=== PATIENT | female | born 1980 | race Caucasian/White ===

== ENCOUNTER 2025-09-13 08:29 | Outpatient (AMB) | payer OTHER, SELFPAY ==
--- NOTE | 2025-09-13 08:34 | MHC.AMNUTRGE ---
VS Expanded 09/13/25 08:35 09/13/25 08:38 Height 5 ft 3 in 5 ft 3 in Weight 165 lb 2 oz 165 lb BMI 29.2 29.2 Intake Visit Reasons: Obesity Nutrition Presentation Details: Pt presents for MNT for overweight Food frequency fruits: 1-2/d wk dairy: 2/day vegetables f: 3 times per week Fish 0 to once a week beverages: coffee 3/c no sugar creamer , water, lemonade no sugar added Typically food intake orgain protein powder made with milk, alternatives quest chips, carb control wrap and tuna with oil /vinegar chicken breast or steak tips with broccoli,white rice , yogurt and granola and almonds OBU-Kcdgvte-Yh.Jeor Equation Height: 5 ft 3 in Weight: 165 lb Resting Metabolic Rate: 1360.48 Calculated Activity Level: Sedentary Calories Needed to Maintain Weight: 1632.58 Diagnosis Nutrition problem #1: overweight/obesity As related to (etiology) #1: diagnosis As evidenced by (sign/symptom) #1: high BMI (29.2 on August 2025) Assessment & Plan Assessment & Plan (1) Overweight (BMI 25.0-29.9): Code(s): E66.3 - Overweight Category: Medical Plan: current wt: 75 kg ( 09/19 ) est kcal needs as per MSJ: 1600 est protein needs as per 1 g/kg BW: 70-80 est fluid needs as per 30 ml/kg BW: 2200 Recommended fiber > 12 g /day and gradually increase up to 25-28 g /day or as tolerated Recommend: 2300 mg per day or less or as recommended by your Dr. Nutrition topics discussed : Reviewed (R), Pt verbalized understanding (V) , not applicable (N/A) R, v : Healthy Plate Method Concept: R, V, : Carbohydrates: food sources of carbohydrates, relationship of carbohydrates to blood glucose, fatty liver GI health. Recommended total amount of carbohydrates per meals and snack. Differences between simple carbohydrates and complex carbohydrates R, V,: Lean protein foods including vegan , vegetarian sources of protein. Benefits of protein (including but not limited to healing, nutritional value , benefits in weight loss, glucose control R, V,: Fats : Source of fats, benefits of fats. Difference between saturated and unsaturated fats. Saturated fats and its contribution to inflammation R, V, : Fiber: food sources and role of fiber in the diet (including but not limited to its role as a prebiotic, benefits in constipation, role in IBS , role in glucose control and cholesterol level) R, V, : Hydration: role of hydration and prevention of dehydration or over hydration. Foods and water content. R, V, N/A: Vitamins and Minerals in foods and supplements R, V, : Interpreting food labels, including serving size, macronutrients, vitamins, minerals, allergens, ingredient list , % daily value Patient Instructions: Practice mindful eating Recommend reducing total carbohydrates to 160 g or less per day distributed throughout the day. Choose complex carbohydrates, high-fiber foods . Watch on amount of fat added to the foods including healthy fats Keep hydrated by choosing water, herbal or fruit infused water Coding Level of Care Code Nutr Indiv Intake (21581) Diagnoses Overweight (BMI 25.0-29.9) E66.3 Time Spent (min) 30
[2025-09-13 08:35] VITALS: BMI 29.2
--- OUTSIDE RECORDS SUMMARY | 2025-09-13 16:15 | XMS_ITS | Encounter Summary ---
Author Organization [facility] Address [address] [place] [address] Care Team Providers Care Executive Casino Host Name Role Phone Brando Harris MD Primary Care Provider Brando Castorena MD Primary Care Provider Autumn Knowles MD Primary Care Provider Un available Georgina Hoffman MD Primary Care Provider Unavail able Jayla Smith MD Primary Care Provider [phone] Harrison Cervantes MD Primary Care Provider + Encounter Details Date Type Department Care Team Description 11/30/2017 Pt. Non Urgent Medical Question OBGYN - [place] [address] [place] [id number] Litzy Oakley CNM Social History Tobacco Use Types Packs/Day Years Used Date Smoking Tobacco: Former Cigarettes Smokeless Tobacco: Former Alcohol Use Standard Drinks/Week Comments Yes 0 (1 standard drink = 0.6 oz pur e alcohol) occasionally Physical Activity Answer Date Recorded On average, how many days pe r week do you engage in moderate to strenuous exercise (like walking fast, running, jogging, dancing, swimming, biking, or other activities that cause a light or heavy sweat)? 3 days 10/03/2019 On average, how many minutes do you engage in exercise at this level? 60 min 10/03/2019 Stress Answer Date Recorded Do you feel stress - tense, restless, nervous, or anxious, or unable to sleep at night because your mind is troubled all the time - these days? To some extent 10/03/2019 Sex Assigned at Date Recorded Not on file Job Start Date Occupation Industry Not on file Not on file Not on file documented as of this encounter Progress Notes * Taisha Dumont - 11/30/2017 9:40 AM ESTFrom: Lindsay Gomez To: Litzy Oakley CNM Sent: 11/30/2017 9:05 AM EST Subject: Me again Good morning! I hope you had a great weekend. I have been trying to take your advice and not stressabout my recent tests but some symptoms I've been having are making it a bit difficult. I realize its too soon to know what I have but I am still having vaginal itching, the odor is gone though. I haven't taken the BV medication bc you said I was negative and I don't want to take anything that's not needed. So is there anything I can take for that? Also my eyes have been cloudy and feel like I have something in them. Going on 4 days of this. Today i woke up with crusty, pink eyes. After I showered the redness and goop went away. They remain slighty puffy. I have had headaches every day, so I've been taking 600mg of Motrin. I have had diarrhea almost every time I eat too. What should my nextstep be? Im a bit nervous about my eyes. I will have my phone all day. [phone]. Thanks again, Lindsay documented in this encounter Plan of Treatment Not on file documented as of this encounter Visit Diagnoses Not on filedocumented in this encounter Additional Health Concerns Infection Onset Date Last Indicated Resolved Time COVID-19 06/03/2021 06/08/2021 03/07/2024 9:06 AM EDT documented as of this encounter Care Teams Executive Casino Host Relationship Specialty Start Date End Date Brando Harris MD PCP - General Internal Medicine 03/07/13 03/25/18 Brando Harris MD PCP - General Internal Medicine 03/26/18 03/30/18 Autumn De Luna MD PCP - General Internal Medicine 03/31/1808/25 Georgina Hoffman MD PCP - General Internal Medicine 08/26/19 09/29/21 Jayla Smith MD [address] [place] [id number] PCP - General Internal Medicine 09/30/21 05/03/23 Harrison Cervantes MD [address] [place] [id number] PCP - General Internal Medicine 05/04/23 documented as of this encounter
--- OUTSIDE RECORDS SUMMARY | 2025-09-13 16:15 | XMS_ITS | Clinical Summary ---
Author Organization [facility] Address [address] [place] [address] Care Team Providers Care French Comber Name Role Phone Harrison Cervantes MD Primary Care Provider + Allergies Active Allergy Reactions Severity Noted Date Comments Bupropion Hcl OTHER 11/24/2013 Slur speech Medications Medication Sig Dispensed Refills Start Date End Date Status MAGNESIUM CITRATE OR Take by mouth. 0 Active Probiotic Product (PROBIOTIC OR) Take by mouth. 0 Activ e famotidine (PEPCID) 20 MG tablet Take 1 Tablet by mouth 2 times daily as needed for Heartburn. 60 Tablet 11/05/2023 Active polyethylene glycol (GLYCOLAX) 17 GM/SCOOP powder Take 17 g by mouth daily. 527 g 11/05/2023 Active docusate sodium (Colace) 100 MG capsule Take 1 Capsule by mouth 2 times daily. 60 Capsule 11/05/2023 Active ALBUTEROL SULFATE 108 (90 Base) MCG/ACT Aero SolnIndications:Ex ercise-induced asthma Inhale 2 Puffs into the lungs every 6 hours as needed for Cough, Wheezing or Shortness of Breath. 15 g 0 11/25/2023 Active fluticasone (Flonase) 50 MCG/ACT nasal sprayIndications:C hronic rhinitis 2 sprays into each nostril once daily. 16 g 0 11/25/2023 Active tretinoin (RETIN-A) 0.025 % cream Apply small amounts to face at night as needed for acne 45 g 0 11/25/2023 Active Sennosides (Senna) 8.6 MG Tab Take by mouth. 0 Active ALBUTEROL SULFATE (Ventolin HFA) 108 (90 Base) MCG/ACT Aero SolnIndications:Mo derate persistent asthma without complication,Exerc ise-induced asthma Inhale 2 Puffs into the lungs every 6 hours as needed for Cough, Wheezing or Shortness of Breath for up to 90 days. 3 g 3 12/18/2023 Active lorazepam (ATIVAN) 0.5 MG tablet Take 1 Tablet by mouth daily as needed for Anxiety for up to 28 days. 28 Tablet 0 02/29/2024 Active bisacodyl (DULCOLAX) 5 MG EC tablet Take 2 tablets by mouth right before your first dose of liquid prep. 2 Tablet 0 2024 Active polyethylene glycol (GoLYTELY,NuLYTELY ) 236 g suspension Take 240 mL by mouth once for 1 dose. May substitue for any PEG. Follow instructions given by office. 4000 mL 0 2024 Active Active Problems Problem Noted Date Trace Aortic insufficiency 05/06/2024 Trace to mild Mitral insufficiency 05/06 Trace Pulmonary insufficiency 05/06/2024 Pap smear abnormality of cervix with ASC US favoring benign 03/15/2024 Overview: 02/2024 PAP ASCUS, + HPV ( neg 16, 18/45 Plan: RECOMMENDATION 1-year follow-up HPV-based screening at follow-up visit RISK 5 year risk of CIN3+ is 3.60% Overweight (BMI 25.0-29.9) 11/25/2023 Chronic right-sided low back pain with b ilateral sciatica 11/25/2023 Pre-syncope 02/28/2021 Overview: Was evaluated in the emergency room Exercise-induced asthma 08/09/2020 Chronic constipation 07/14/2018 Rectal mucosa prolapse 07/14/2018 Acne 09/02/2011 Anxiety 08/23/2010 Resolved Problems Problem Noted Date Resolved Date Encounter for counseling regarding contraception 11/13/2021 04/19/2024 Last Assessment & Plan: She was counseled re: options for contraception including oral hormonal therapy with OCP, Nexplanon, Depo Provera, or levonorgestrel IUD. Not recommended to use estradiol given her recent smoking history and age putting her at increased risk of stroke. She voiced understanding. She desired to use POP for now given thought to be short term. I explained that she was midcycle when she had UPI and thus it was good to take the Plan B, but chances of , although low are not zero. As such, I recommended continued use of condoms until her period comes. If it does not come in the next couple weeks, she should take a test. If her period does come, she can start her pill at the end of the heaviest days. Explained importance of taking at the same day and through her partner's confirmatory testing following his vasectomy to avoid . She voiced understanding and agreed. Major depression in partial remission 11/18/2013 10/31/2020 Word finding difficulty 06/16/2013 07/14/20 18 Heart palpitations 09/02/2011 07/14/2018 Nocturnal enuresis 09/02/2011 07/14/2018 Tobacco abuse 06/27/2008 09/02/2011 Immunizations Name Administration Dates Next Due Tdap 07/14/2018,06/27/2008 Family History Medical History Relation Name Comments ALS Father - due t o COPD; DM, [place] Colon Father's side Diabetes Maternal Grandmother glaucom a cardiac ablation Mother Dx. with [place] PD. [place] Paternal Grandfather age 49 [place] Paternal Grandmother age 80, stroke [place] Breast Negative Hx CA Ovarian Negative Hx Relation Name Status Comments Father Father's side Alive Maternal Grandmother Mother Alive Paternal Grandfather Paternal Grandmother Social History Tobacco Use Types Packs/Day Years Used Date Smoking Tobacco: Former Cigarettes Q uit: 11/07/2023 Smokeless Tobacco: Never Tobacco Cessation:Counseling Given: Not Answered Alcohol Use Standard Drinks/Week Comments Yes 0 [...] file Not on file Not on file Last Filed Vital Signs Vital Sign Reading Time Taken Comments Blood Pressure 100/64 04/19/2024 8:38 AM EDT Pulse 72 04/19/2024 8:38 AM EDT Temperature 36.7 C (98.1 F) 04/19/2024 8:38 AM EDT Respiratory Rate 16 04/19/2024 8:38 AM EDT Oxygen Saturation 98% 12/18/2023 4:14 PM EST Inhaled Oxygen Concentration - - Weight 74.7 kg (164 lb 9.6 oz) 04/19/2024 8:38 A M EDT Height 160 cm (5' 3 ) 04/19/2024 8:38 AM EDT Body Mass Index 29.16 04/19/2024 8:38 AM EDT Plan of Treatment Health Maintenance Due Date Last Done Comments Covid-19 Vaccine (#1) 1979 PNEUMOCOCCAL VACCINE FOR HIG H RISK PATIENTS (#1) 1998 MAMMOGRAM 09/05/2022 09/05/2021, 09/04/2020 BMI CHECK/ADVISE 10/26/2024 03/07/2024, , 11/25/2023, Additional history exists DEPRESSION SCREENING/FOLLOWUP 10/26/2024 (Completed), 06/01/2023, 06/01/2023, Additional history exists SOCIAL NEEDS SCREENING 10/26/2024 11/23/2023, 2018 INFLUENZA (#1) 2025 10/03/2019 (Refu sed), 10/30/2014 (Refused) BASELINE HEALTH EXAM 40-64 11/25/202511/25, 11/11/2019, 10/03/2019, Additional history exists DTAP/TDAP/TD (3 - Td or Tdap) 07/14/2028 07/14/2018, 06/27/2008 CHOLESTEROL SCREENING 01/03/2029 01/04/2024 , 11/11/2019, 09/04/2018, Additional history exists CERVICAL CANCER SCREENING 03/07/20292023, 12/10/2016, 10/05/2012, Additional history exists COLON CANCER SCREENING 05/09/2034 05/09/2024 Care Teams French Comber Relationship Specialty Start Date End Date Harrison Cervantes MD [address] [place] [id number] PCP - General Internal Medicine 05/04/23
--- OUTSIDE RECORDS SUMMARY | 2025-09-13 16:15 | XMS_ITS | Encounter Summary ---
Author Organization [facility] Address [address] [place] [address] Care Team Providers Care Sewer Pipe Offbearer Name Role Phone Harrison Cervantes MD Primary Care Provider + Reason for Visit * Reason Onset Date Comments Prior Authorization 11/27/2023 Encounter Details Date Type Department Care Team Description 11/27/2023 Telephone Adult Medicine [address] [address] Harrison Cervantes MD [address] [place] [phone] Prior Authorization Social History Tobacco Use Types Packs/Day Years Used Date Smoking Tobacco: Former Cigarettes Q uit: 11/07/2023 Smokeless Tobacco: Never Alcohol Use Standard Drinks/Week Comments Yes 0 [...] on file documented as of this encounter Miscellaneous Notes * Telephone Encounter - Arabella Delacruz M.A. - 11/30/2023 9:02 AM EST Prior authorization for the mark a cream was approved Approved From 11/27/23 until 11/26/24 Prior authorization case approval number # [id number] Approval faxed to [facility] at [phone] * Telephone Encounter - Arabella Delacruz M.A. - 11/27/2023 3:04 PM EST Prior authorization done today over the phone with Jeny cullen [facility] Dx code L70.0 Acne vulgaris * Telephone Encounter - Lizbeth Clarke - 11/27/2023 10:36 AM EST Prior Authorization for Medication-do not complete and send this encounter unless you have the fax from the pharmacy. Is this a Cover My Meds request: Yes -- Velarde Code [id number] Name of Medication tretinoin (RETIN-A) 0.025 % cream Dose of Medication What is the RX # from the faxed refill? How does patient take this med? What Pharmacy did the fax come from: [address] [address] Pharmacy fax #: [phone] [employer] Information from fax: What Prescription Plan does the patient have? BIN/PCN if applicable: Cardholder ID: Person Code: Relationship Code: Help desk phone: documented in this encounter Plan of Treatment Not on file documented as of this encounter Visit Diagnoses Not on filedocumented in this encounter Additional Health Concerns Infection Onset Date Last Indicated Resolved Time COVID-19 06/03/2021 06/08/2021 03/07/2024 9:06 AM EDT documented as of this encounter Care Teams Sewer Pipe Offbearer Relationship Specialty Start Date End Date Harrison Cervantes MD [address] [place] [id number] PCP - General Internal Medicine 05/04/23 documented as of this encounter
--- OUTSIDE RECORDS SUMMARY | 2025-09-13 16:15 | XMS_ITS | Encounter Summary ---
Author Organization [facility] Address [address] [place] [address] Care Team Providers Care Loading Machine Operator Helper Name Role Phone Harrison Cervantes MD Primary Care Provider + Reason for Visit * Reason Onset Date Comments medication problems 06/05/2023 Encounter Details Date Type Department Care Team Description 06/05/2023 Telephone Adult Medicine [address] [address] Harrison Cervantes MD [address] [place] [address] [phone] medication problems Social History Tobacco Use Types Packs/Day Years Used Date Smoking Tobacco: Some Days Cigarettes Smokeless Tobacco: Never Comments:just restarted in F ebruary- 10 cigarettes a day. Alcohol Use Standard Drinks/Week Comments Yes 0 [...] file Not on file Not on file COVID-19 Exposure Response Date Recorded In the last 10 days, have xin u been in contact with someone who was confirmed or suspected to have Coronavirus/COVID-19? No / Unsure 06/01/2023 10:30 AM EDT documented as of this encounter Miscellaneous Notes * Telephone Encounter - Lina Angela C.M.A. - 06/08/2023 10:14 AM EDT Voice mail left on identified voice mail for pt to return my call regarding lorazepam being on backorder at [facility]. Would she like us to send the script to a different pharmacy? * Telephone Encounter - Jessica Alfaro - 06/05/2023 3:09 PM EDT Who is calling? A pharmacist: Pharmacy: [facility] Pharmacist Name: Pharmacy Name of the medication lorazepam (ATIVAN) 0.5 MG tablet What is the specific problem or interaction? Medication on backorder please send script for alternative If the patient is having a problem with taking the med - how long has the problem been going on? N/A documented in this encounter Plan of Treatment Not on file documented as of this encounter Visit Diagnoses Not on filedocumented in this encounter Additional Health Concerns Infection Onset Date Last Indicated Resolved Time COVID-19 06/03/2021 06/08/2021 03/07/2024 9:06 AM EDT documented as of this encounter Care Teams Loading Machine Operator Helper Relationship Specialty Start Date End Date Harrison Cervantes MD [address] [place] [id number] PCP - General Internal Medicine 05/04/23 documented as of this encounter
--- OUTSIDE RECORDS SUMMARY | 2025-09-13 16:15 | XMS_ITS | Encounter Summary ---
Author Organization [facility] Address [address] [place] [address] Care Team Providers Care German Instructor Name Role Phone Jayla Smith MD Primary Care Provider [phone] Harrison Cervantes MD Primary Care Provider + Reason for Visit * Reason Onset Date Comments medication problems 12/02/2021 Encounter Details Date Type Department Care Team Description 12/02/2021 Telephone Adult Medicine [address] [phone] Jayla Smith MD [address] [place] [address] [phone] medication problems Social History Tobacco Use Types [...] Exposure Response Date Recorded In the last month, have you been in contact with someone who was confirmed or suspected to have Coronavirus / COVID-19? No / Unsure 11/27/2021 3:56 PM EST documented as of this encounter Miscellaneous Notes * Telephone Encounter - Luis Zhang C.N.A. - 12/03/2021 9:40 AM EST Pt informed * Telephone Encounter - Tatyana Aggarwal PA-C - 12/02/2021 3:35 PM EST Alternative sent to pharmacy * Telephone Encounter - Elvia Lopez M.A. - 12/02/2021 3:16 PM EST Tatyana, Please see below message. Not covered * Telephone Encounter - Jessica Alfaro - 12/02/2021 3:10 PM EST Who is calling? The patient Name of the medication Cetirizine HCl 0.24 % Solution What is the specific problem or interaction? Insurance company is denying this precription, please send alternative If the patient is having a [...] documented as of this encounter Care Teams German Instructor Relationship Specialty Start Date End Date Jayla Smith MD [address] [place] [id number] PCP - General Internal Medicine 09/30/21 05/03/23 Harrison Cervantes MD [address] [place] [id number] PCP - General Internal Medicine 05/04/23 documented as of this encounter
--- OUTSIDE RECORDS SUMMARY | 2025-09-13 16:15 | XMS_ITS | Clinical Summary ---
Author Organization [facility] [employer] [facility] Address [address] [facility] [place], [place] [address] Phone Care Team Providers Care Bid Analyst Name Role Phone Harrison Cervantes MD Primary Care Pr ovider Allergies Active Allergy Reactions Criticality Noted Date Comments Bupropion Hcl Other 11/24/2013 Slur speech Medications MAGNESIUM CITRATE ORAL Take by mouth. Active senna (SENOKOT) 8.6 mg tabletIndications :Chronic constipation Take 1 tablet (8.6 mg total) by mouth 1 (one) time each day. 90 tablet 1 5 Active albuterol HFA (PROAIR HFA ; PROVENTIL HFA ; VENTOLIN HFA) 90 mcg/actuation inhaler Inhale 1 puff by mouth every 6 (six) hours if needed for wheezing. 6.7 g 1 5 Active aspirin 81 mg EC tabletIndications :Other chest pain Take 1 tablet (81 mg total) by mouth 1 (one) time each day. 90 each 3 5 07/21/20 26 Active LORazepam (ATIVAN) 0.5 mg tabletIndications :Anxiety TAKE 1 TABLET (0.5 MG TOTAL) BY MOUTH DAILY NEEDED FOR ANXIETY MAX DAILY AMOUNT: 0.5 MG 7 tablet 5 Active FLUoxetine (PROzac) 10 mg capsuleIndication s:Anxiety and depression,Premen opausal patient Take 1 capsule (10 mg total) by mouth 1 (one) time each day. 90 each 1 5 02/06/20 26 Active Active Problems Problem Noted Date Diagnosed Date Chest pain 07/21/2025 Assessment & Plan (07/21/2025 9:35 AM EDT): The patient came for evaluation due to episodes of chest pain. Description of symptoms: Atypical Risk factors for CAD: Family history of premature CAD and current smoker Management plan: 1. Ischemic evaluation with a cardiac CT scan. The use of a cardiac CT scan is recommended by the 2021 chest pain guidelines for evaluation of patients with stable chest pain, no known CAD, and increased risk for the presence of coronary artery disease (level 1A recommendation). 2. Also, will order an echocardiogram to rule out any structural heart disease that may be contributing to the patient's symptoms: 3. The patient was instructed to avoid any strenuous physical activities, including formal and informal exercise, until the cardiac evaluation is completed and the results have been discussed with the patient. 4. Will also order laboratory testing that would include a lipid panel and lipoprotein a level. 5. Will start the patient on aspirin 81 mg orally daily. 6. During today's visit, we reviewed the warning signs that should prompt an urgent medical evaluation. Specifically, we discussed that the patient should go to the hospital if she develops any chest discomfort at rest lasting for more than 10- 15 minutes or worsening chest discomfort with exertion. Orders: Lipid panel with reflex to direct LDL; Future Lipoprotein A; Future Transthoracic echocardiogram (TTE) complete with PRN contrast, bubble, strain, and 3D order panel; Future perflutren lipid microsphere (DEFINITY) 1.3 mL in sodium chloride 0.9% 8.7 mL injection Cardiac event monitor; Future Basic metabolic panel; Future CT Angio Heart w 3D Imaging/Function; Future aspirin 81 mg EC tablet; Take 1 tablet (81 mg total) by mouth 1 (one) time each day. Arrhythmia 07/20/2025 Primary insomnia 06/21/2025 Assessment & Plan (06/21/2025 5:53 PM EDT): She will use the lorazepam as needed. Will reassess if this improves with better control of her depression and anxiety with the prozac Palpitation 05/01/2025 Assessment & Plan (07/21/2025 9:35 AM EDT): The patient has been experiencing episodes of palpitations. Her symptoms have been present for several years. Her episodes of palpitations can last for up to 20 seconds per episode. Previous Holter monitor did not show any arrhythmias. It did show evidence of PACs. Given her continued symptoms, we will proceed with a 30-day ambulatory quality assurance monitor (loop monitor). We will also order an echocardiogram to rule out any significant structural heart disease. Orders: Cardiac event monitor; Future Pap smear abnormality of cervix with ASCUS favor ing benign 03/15/2024 Overview (04/07/2025): 02/2024 PAP ASCUS, + HPV ( neg 16, 18/45 Plan: RECOMMENDATION 1-year follow-up 2024: Pap NIL HPV pos not 16/18/45, per ASCCP needs colpo HPV-based screening at follow-up visit RISK 5 year risk of CIN3+ is 3.60% Chronic right-sided low back pain with bilateral sciatica 11/25/2023 Overweight (BMI 25.0-29.9) 11/25/2023 Assessment & Plan (06/21/2025 5:53 PM EDT): See HPI Referred to bariatrics and nutrition Orders: Ambulatory referral to Bariatric Surgery; Future Ambulatory referral to Nutrition Services; Future Hemoglobin A1c; Future Exercise-induced asthma 08/09/2020 Chronic constipation 07/14/2018 Assessment & Plan (06/21/2025 5:53 PM EDT): Continue senna as needed Assessment & Plan (02/06/2025 5:59 PM EDT): Continue Senokot Orders: senna (SENOKOT) 8.6 mg tablet; Take 1 tablet (8.6 mg total) by mouth 1 (one) time each day. Rectal mucosa prolapse 07/14/2018 Acne 09/02/2011 Anxiety 08/23/2010 Assessment & Plan (06/21/2025 5:53 PM EDT): She will continue with lorazepam as needed for severe anxiety. Refills sent. MASSPAT reviewed and appropriate. No indication for CSC at this time. Medication last filled in January. Orders: LORazepam (ATIVAN) 0.5 mg tablet; Take 1 tablet (0.5 mg total) by mouth 1 (one) time each day if needed for anxiety. Max Daily Amount: 0.5 mg Assessment & Plan (02/06/2025 5:59 PM EDT): MassPAT reviewed and appropriate. Last filled March 11, 2024. 28 tablets. She has 1 more pill left and is requesting refills. 28 tablets sent. No indication for controlled substance contract due to infrequent prescription Orders: LORazepam (ATIVAN) 0.5 mg tablet; Take 1 tablet (0.5 mg total) by mouth 1 (one) time each day if needed for anxiety. Max Daily Amount: 0.5 mg Resolved Problems Problem Noted Date Diagnosed Date Resolved Date Aortic insufficiency 05/06/2024 025 Mitral insufficiency 05/06/2024 025 Pulmonary insufficiency 05/06/202406/27 Pre-syncope 02/28/2021 07/21/2025 Overview (10/27/2024): Was evaluated in the emergency room Encounters Date Type Department Care Team Description 07/30/2025 9:00 AM EDT Ancillary Procedure [facility] [address] [place] [phone] Palpitation; Other chest pain 07/26/2025 Telephone [facility] [address] [place] [address] [address] [place] [address] Monica Pedersen MD 07/24/[address] [facility] [address] [facility] [address] [place] [address] Monica Pedersen MD 07/21/2025 8:20 AM EDT Office Visit [facility] [address] [facility] [address] [place] [address] Monica Pedersen MD Other chest pain (Primary Dx); Palpitation; Arrhythmia; Palpitations 07/21/[address] [facility] [address] [facility] [address] [place] [phone] Monica Pedersen MD 06/21/2025 9:00 AM EDT Office Visit Adult Medicine [address] [phone] Harrison Cervantes MD Anxiety and depression (Primary Dx); Anxiety; Primary insomnia; Chronic constipation; Overweight (BMI 25.0-29.9); Hair thinning; Premenopausal patient from Last 3 Months Immunizations Immunization Administration Dates Next Due Tdap Tetanus diptheria acell ular pertussis (Boostrix; Adacel) 7yo and older 07/14/2018,06/27/2008 Surgical History Surgery Date Site/Laterality Comments OTHER SURGICAL HISTORY PROCEDURE: BREAST PROTHESIS; COMMENT: dani implants OTHER SURGICAL HISTORY PROCEDURE: IMPLANT BREAST SILICONE/EQ Medical History Medical History Date Comments Former smoker DX:Former smoker ; COMMENT: quit 06/2011 Anxiety 08/23/2010 DX:Anxiety Chronic constipation 07/14/2018 DX:Chronic constipation Rectal mucosa prolapse 07/14/2018 DX:Rectal mucosa prolapse Constipation DX:Constipation Family History Medical History Relation Name Comments ALS Father - due t o COPD; DM, [place] Colon cancer Father's side Diabetes Maternal Grandmother glaucom a Other: cardiac ablation Mother Dx. with COPD. Heart attack Paternal Grandfather age 49 Heart attack Paternal Grandmother age 80, stroke Breast cancer Neg Hx Ovarian cancer Neg Hx Relation Name Status Comments Father Father's side Alive Maternal Grandmother Mother Alive Paternal Grandfather Paternal Grandmother Social History Tobacco Use Types Packs/Day Years Used Date Smoking Tobacco: Some Days Cigarettes 0 Last attempted to quit: 11/07/2023 Smokeless Tobacco: Never Tobacco Cessation:Ready to Q uit: Not Asked; Counseling Given: Not Answered Alcohol Use Standard Drinks/Week Comments Yes 0 (1 standard drink = 0.6 oz pur e alcohol) occ Comments Unknown Sex and Gender Information Value Date Recorded Sex Assigned at Not on file Legal Sex Female 4:47 AM EST Gender Identity Female 06/16/2025 11:06 AM EDT Sexual Orientation Not on file Obstetrics History * This document contains information received from the source organization and may not represent a complete record from that organization. Para Term AB IAB SAB Ectopic Multiple Livin g Live Births 2 1 1 1 1 Date Outcome GA Total Labor Labor/2nd/3rd Weight Sex Type Anes PTL Abi A1 A5 Name Clin 2004 Term F Vag-S pont Living Last Filed Vital Signs Vital Sign Reading Time Taken Comments Blood Pressure 120/70 07/21/2025 8:19 AM EDT Pulse 71 07/21/2025 8:19 AM EDT Temperature 36.6 C (97.9 F) 06/21/2025 8:57 AM EDT Respiratory Rate 17 06/21/2025 8:57 AM EDT Oxygen Saturation 97% 07/21/2025 8:19 AM EDT Inhaled Oxygen Concentration - - Weight 73.5 kg (162 lb) 07/21/2025 8:19 AM EDT Height 160 cm (5' 3 ) 07/21/2025 8:19 AM EDT Body Mass Index 28.7 07/21/2025 8:19 AM EDT Plan of Treatment Upcoming Encounters Date Type Department Care Team (Late st Contact Info) Description 10/11/2025 7:00 AM EST Ancillary Procedure [facility] [address] [place] [address] 11/20/2025 7:40 AM EST Office Visit [facility] [address] [place] [phone] Shawnee Boggs NP [address] [place] [address] [place] [phone] Health Maintenance Due Date Last Done Comments Social Influencers of Health Screening 09/28/2022 Breast Cancer Screening 09/05/2023 09/05/20 21, 09/04/2020 Depression Screening 10/26/2024 11/25/2023 COVID-19 Vaccine (1 - 2024-2 6 season) 2025 Influenza Vaccine (#1) 2025 DTaP,Tdap,and Td Vaccines (3 - Td or Tdap) 07/14/2028 07/14/2018, 06/27/2008 Cholesterol Screening (Lipid Panel) 02/07/2030 02/07/2025, 01/04/2024 Cervical Cancer Screening: HPV 04/04/2030 04/04/2025, 04/04/2025, 03/07/2024 Colorectal Cancer Screening: Colonoscopy 05/09/2034 05/09/2024 RSV Immunization Adult Patients (1 - 1-dose 75+ series) 2054 Hepatitis A Vaccines Aged Out 10/13/2018 No long er eligible based on patient's age to complete this topic HIV Screening Completed 04/04/2025, 12/06/2021 Hepatitis C Screening Completed 04/04/2025 , 12/06/2021 HIB Vaccines Aged Out No longer eligi ble based on patient's age to complete this topic HPV Vaccines Aged Out No longer eligi ble based on patient's age to complete this topic Hepatitis B Vaccines Discontinued IPV Vaccines Aged Out No longer eligi ble based on patient's age to complete this topic MMR Vaccines Aged Out No longer eligi ble based on patient's age to complete this topic Meningococcal ACWY Vaccine Aged Out N o longer eligible based on patient's age to complete this topic Meningococcal B Vaccine Aged Out No l onger eligible based on patient's age to complete this topic Pneumococcal Vaccine: Pediatrics (0 to 5 Years) and At-Risk Patients (6 to 49 Years) Discontinued RSV Immunization Patients Under 20 months Aged Out No longer eligible based on patient's age to complete this topic Varicella Vaccines Aged Out No longer eligible based on patient's age to complete this topic Procedures Procedure Name Priority Date/Time Associated Diagnosis Comments ECG 12-LEAD Routine 07/21/2025 8:28 AM EDT Arrhythmia FERRITIN Routine 06/21/2025 10:07 AM EDT Hair thinning IRON AND TIBC Routine 06/21/2025 10:07 AM EDT Hair thinning THYROID STIMULATING HORMONE WITH REFLEX TO FREE T4 AND FREE T3 Routine 06/21/2025 10:07 AM EDT Hair thinning VITAMIN D 25 HYDROXY Routine 06/21/2025 10:07 AM EDT Hair thinning VITAMIN B12 Routine 06/21/2025 10:07 AM EDT Hair thinning HEMOGLOBIN A1C Routine 06/21/2025 10:07 AM EDT Overweight (BMI 25.0-29.9) Hair thinning Premenopausal patient VITAMIN B6 Routine 06/21/2025 10:07 AM EDT Hair thinning HPV WITH REFLEX GENOTYPE Routine 04/04/2025 11:18 AM EDT Women's annual routine gynecological examination HEPATITIS C ANTIBODY Routine 04/04/2025 11:10 AM EDT Screen for STD (sexually transmitted disease) HIV 1, 2 ANTIBODY, P24 ANTIGEN WITH REFLEX TO DIFFERENTIATION Routine 04/04/2025 11:10 AM EDT Screen for STD (sexually transmitted disease) LIPID PANEL WITH REFLEX TO DIRECT LDL Routine 02/07/2025 8:19 AM EDT Screening for metabolic disorder HM COLONOSCOPY Routine 05/09/2024 HM DEPRESSION SCREENING Routine 11/25/2023 SCREENING MAMMOGRAPHY BI 2-VIEW BREAST INC CAD Routine 09/05/2021 5:16 PM EST Encounter for screening mammogram for malignant neoplasm of breast from Last 3 Months or Most Recently Relevant to Health Maintenance Results * ECG 12 lead (07/21/2025 8:28 AM EDT) Ventricular Rate ECG 63 BPM GEMUSE Atrial Rate 63 BPM GEMUSE P-R Interval 120 ms GEMUSE QRS Duration 82 ms GEMUSE Q-T Interval 416 ms GEMUSE QTc 425 ms GEMUSE P Wave [place] 50 degrees GEMUSE R [place] 100 degrees GEMUSE T [place] 66 degrees GEMUSE ECG Interpretation Sinus rhythm with Premature atrial complexes Rightward axis Borderline ECG No previous ECGs available Confirmed by MONICA PEDERSEN ([id number]) on 07/21/2025 9:27:39 AM GEMUSE 07/21/2025 8:28 AM EDT 07/21/2025 9:27 AM EDT Monica Pedersen MD ECG ORDERABLES Final Result RONAL * Thyroid stimulating hormone with reflex to free t4 and free t3 (06/21/2025 10:07 AM EDT) TSH 1.77 0.40 - 4.00 mcIU/mL LAB CHEMISTRY METHOD 06/21/2025 2:07 PM EDT [facility] Blood Venous blood specimen / Unknown Venipuncture / Unknown 06/21/2025 10:07 AM EDT 06/21/2025 10:07 AM EDT Harrison Cervantes MD LAB BLOOD ORDERA BLES Final Result Performing Organization Address [facility]/ZIP Co de Phone Number [facility] [address] [place] [address], [place] [phone] * Iron and TIBC (06/21/2025 10:07 AM EDT) Iron 103 40 - 150 mcg/dL LAB CHEMISTRY METHOD 06/21/2025 12:47 PM EDT [facility] TIBC 286 250 - 450 mcg/dL LAB CHEMISTRY METHOD 06/21/2025 12:47 PM EDT [facility] Iron Saturation 36 15 - 50 % LAB CHEMISTRY METHOD 06/21/2025 12:47 PM EDT [facility] Blood Venous blood specimen / Unknown Venipuncture / Unknown 06/21/2025 10:07 AM EDT 06/21/2025 10:07 AM EDT Harrison Cervantes MD LAB BLOOD ORDERA BLES Final Result Performing Organization Address City/[facility]/ZIP Co de Phone Number [facility] [address] [place] [address], [place] [phone] * Vitamin D 25 hydroxy (06/21/2025 10:07 AM EDT) [facility] Vit D, 25-Hydroxy 32.4 30.0 - 80.0 ng/mL LAB CHEMISTRY METHOD 06/21/2025 2:07 PM EDT [facility] Blood Venous blood specimen / Unknown Venipuncture / Unknown 06/21/2025 10:07 AM EDT 06/21/2025 10:07 AM EDT Harrison Cervantes MD LAB BLOOD ORDERA BLES Final Result [facility] [address] [place] [address], * Vitamin B6 (06/21/2025 10:07 AM EDT) [facility] Vitamin B6 (Pyridoxine) Level 16 5 - 50 ug/L 06/27/2025 12:00 PM EDT [facility] Comment: This test was developed and the performance characteristics determined by [facility]. It has not been cleared or approved by the FDA. The laboratory is regulated under CLIA as qualified to perform high-complexity testing. This test is used for patient testing purposes. It should not be regarded as investigational or for research. Test performed at [facility], [address] , [place] [address] Catarina Terrell MD, PhD - Apprentice Instrument Technician Blood Venous blood specimen / Unknown Venipuncture / Unknown 06/21/2025 10:07 AM EDT 06/21/2025 10:07 AM EDT Harrison Cervantes MD LAB BLOOD ORDERA BLES Final Result [facility] [address] [place] [address] * Hemoglobin A1c (06/21/2025 10:07 AM EDT) [facility] Hemoglobin A1C 5.2 <6.5 % LAB CHEMISTRY METHOD 06/21/2025 1:44 PM EDT [facility] Mean Bld Glu Estim. 103 mg/dL LAB CHEMISTRY METHOD 06/21/2025 1:44 PM EDT [facility] Blood Venous blood specimen / Unknown Venipuncture / Unknown 06/21/2025 10:07 AM EDT 06/21/2025 10:07 AM EDT Harrison Cervantes MD LAB BLOOD ORDERA BLES Final Result [facility] [address] [place] [address], [place] [phone] * Ferritin (06/21/2025 10:07 AM EDT) [facility] Ferritin 56 8 - 252 ng/mL LAB CHEMISTRY METHOD 06/21/2025 1:09 PM EDT [facility] Blood Venous blood specimen / Unknown Venipuncture / Unknown 06/21/2025 10:07 AM EDT 06/21/2025 10:07 AM EDT Harrison Cervantes MD LAB BLOOD ORDERA BLES Final Result [facility] [address] [place] [address], [place] [phone] * Vitamin B12 (06/21/2025 10:07 AM EDT) [facility] Vitamin B-12 295 250 - 900 pcg/mL LAB CHEMISTRY METHOD 06/21/2025 1:09 PM EDT [facility] Blood Venous blood specimen / Unknown Venipuncture / Unknown 06/21/2025 10:07 AM EDT 06/21/2025 10:07 AM EDT Harrison Cervantes MD LAB BLOOD ORDERA BLES Final Result Performing Organization Address [facility]/ZIP Co de Phone Number [facility] [address] [place] [address], [place] [phone] * (ABNORMAL) HPV with reflex genotype (04/04/2025 11:18 AM EDT) [facility] HPV Positive( A) Negative LAB MICROBIOLOGY METHOD 04/06/2025 2:52 PM EDT [facility] Broom Cervix uteri structure / Unknown 04/04/2025 11:18 AM EDT 04/05/2025 6:44 AM EDT us Areli Cook [facility] LAB MOLECULAR DIAGNOSTICS O RDERABLES Final Result Performing Organization Address [facility]/ZIP Co de Phone Number [facility] [address] [place] [address], [place] [phone] * Hepatitis C antibody (04/04/2025 11:10 AM EDT) [facility] Hepatitis C Antibody Negative Negative LAB CHEMISTRY METHOD 04/04/2025 3:16 PM EDT [facility] Blood Venous blood specimen / Unknown Venipuncture / Unknown 04/04/2025 11:10 AM EDT 04/04/2025 11:10 AM EDT us Areli PAYNE LAB BLOOD ORDERABLES Final Result Performing Organization Address City/[facility]/ZIP Co de Phone Number [facility] [address] [place] [address], [place] [phone] * HIV 1,2 antibody, p24 antigen with reflex to differentiation (04/04/2025 11:10 AM EDT) [facility] HIV Combo AB/AG Negative Negative LAB CHEMISTRY METHOD 04/04/2025 3:16 PM EDT [facility] Blood Venous blood specimen / Unknown Venipuncture / Unknown 04/04/2025 11:10 AM EDT 04/04/2025 11:10 AM EDT Narrative [facility] - 04/04/2025 3:16 PM EDT This assay is a 4th generation assay allowing for earlier detection of HIV infection by detecting the presence of the HIV-1 p24 antigen as well as the traditional antibodies to HIV type 1 (including group O) and type 2. Use of a 4th generation assay is the current CDC recommendation for HIV screening. Areli PAYNE LAB BLOOD ORDERABLES Final Result [facility] [address] [place] [address], * Lipid panel with reflex to direct LDL (02/07/2025 8:19 AM EDT) [facility] Cholesterol 175 0 - 200 mg/dL LAB CHEMISTRY METHOD 02/07/2025 11:08 AM EDT [facility] Triglycerides 99 0 - 150 mg/dL LAB CHEMISTRY METHOD 02/07/2025 11:[facility] HDL 60 >=40 mg/dL LAB CHEMISTRY METHOD 02/07/2025 11:08 [facility] LDL Calculated 95 0 - 100 mg/dL LAB CHEMISTRY METHOD 02/07/2025 11:08 [facility] VLDL Cholesterol Isrrael 19.8 mg/dL LAB CHEMISTRY METHOD 02/07/2025 11:08 AM EDT [facility] Non HDL Chol. (LDL+VLDL) 115 <145 mg/dL LAB CHEMISTRY METHOD 02/07/2025 11:08 [facility] Chol/HDL Ratio 2.9 0.0 - 4.4 LAB CHEMISTRY METHOD 02/07/2025 11:08 AM EDT [facility] Blood Venous blood specimen / Unknown Venipuncture / Unknown 02/07/2025 8:19 AM EDT 02/07/2025 8:19 AM EDT Harrison Cervantes MD LAB BLOOD ORDERA BLES Final Result [facility] [address] [place] [address], [place] [phone] * Colonoscopy (05/09/2024) Colonoscopy abstracted, no interpretation Anatomical Region Laterality Modality Other Historical Provider HEALTH MAINTENANCE Final Result * Depression Screening (11/25/2023) Depression Screening abstracted Historical Provider HEALTH MAINTENANCE Final Result * SCREENING MAMMOGRAPHY BI 2-VIEW BREAST INC CAD (09/05/2021 5:16 PM EST) Anatomical Region Laterality Modality Radiographic Courtney ging 09/04/2020 5:08 PM EST Narrative 09/06/2021 12:26 PM EST This is a summary report. The complete report is available in the patient's medical record. If you cannot access the medical record, please contact the sending organization for a detailed fax or copy. Full field digital screening 2D and tomosynthesis mammography without intravenous implants displacement, reviewed with CAD and compared to previous. The breasts are composed of fatty and fibroglandular tissue. No suspicious mass, architectural distortion or suspicious calcifications are identified. IMPRESSION: : No mammographic evidence of malignancy. BIRADS 1-Negative; N. 5 year breast cancer risk assessment 0.7 % Lifetime breast cancer risk assessment 10.0 % Breast cancer risk category Low (<15%) Procedure Note Jayleen Gonzalez MD - 10/14/2022 This is a summary report. The complete report is available in thepatient's medical record. If you cannot access the medical record, pleasecontact the sending organization for a detailed fax or copy. Full field digital screening 2D and tomosynthesis mammography withoutintravenous implants displacement, reviewed with CAD and compared toprevious. The breasts are composed of fatty and fibroglandular tissue.No suspicious mass, architectural distortion or suspicious calcificationsare identified. IMPRESSION: : No mammographic evidence of malignancy. BIRADS 1-Negative; N. 5 year breast cancer risk assessment 0.7 % Lifetime breast cancer risk assessment 10.0 % Breast cancer risk category Low (<15%) us Linda MARTINEZ IMG XR PROCEDURES Final Re sult from Last 3 Months or Most Recently Relevant to Health Maintenance Insurance [employer] Care Teams Bid Analyst Relationship Specialty Start Date End Date Harrison Cervantes MD [address], [place] PCP - General 05/04/23
--- OUTSIDE RECORDS SUMMARY | 2025-09-13 16:15 | XMS_ITS | Encounter Summary ---
Author Organization [facility] Address [address] [place] [address] Care Team Providers Care Logging Crew Supervisor Name Role Phone Jayla Smith MD Primary Care Provider [phone] Harrison Cervantes MD Primary Care Provider + Encounter Details Date Type Department Care Team Description 11/30/2021 Pt. Non Urgent Medical Question OBN - [place] [address] [place] [address] [facility] [address] [place] [address] UTI symptoms (Primary Dx) Social History Tobacco Use Types Packs/Day Years [...] encounter Miscellaneous Notes * Telephone Encounter - Julisa Nuno R.N. - 12/02/2021 9:10 AM ESTFrom: Lindsay Gomez To: Areli Cook CNM Sent: 11/30/2021 1:46 PM EST Subject: Still experiencing discomfort Good afternoon, So sorry to bother you on a Thursday. I finished my last antibiotic this morning for the UTI. Im still feeling discomfort though. Its not as bad, but its definitely still there. What do you suggest? documented in this encounter Plan of Treatment Not on file documented as of this encounter Results * URINE, CULTURE (12/02/2021 3:48 PM EST) Urine (Urine) 12/02/2021 3:4 8 PM EST 12/02/2021 3:49 PM EST [facility]ative [facility] - 12/03/2021 2:25 PM EST Release to patient->Immediate No growth Areli Cook CNM LAB [facility] documented in this encounter Visit Diagnoses Diagnosis UTI symptoms- Primary documented in this encounter Additional Health Concerns Infection Onset Date Last Indicated Resolved Time COVID-19 06/03/2021 06/08/2021 03/07/2024 9:06 AM EDT documented as of this encounter Care Teams Logging Crew Supervisor Relationship Specialty Start Date End Date Jayla Smith MD [address] [place] [id number] PCP - General Internal Medicine 09/30/21 05/03/23 Harrison Cervantes MD [address] [place] [address] PCP - General Internal Medicine 05/04/23 documented as of this encounter
--- OUTSIDE RECORDS SUMMARY | 2025-09-13 16:15 | XMS_ITS | Encounter Summary ---
Author Organization [facility] Address [address] [place] [address] Care Team Providers Care Sheet Metal Helper Name Role Phone Autumn De Luna MD Primary Care Provider Un available Georgina Hoffman MD Primary Care Provider Unavail able Jayla Smith MD Primary Care Provider [phone] Harrison Cervantes MD Primary Care Provider + Encounter Details Date Type Department Care Team Description 10/13/2018 House Mother Report Medical Records [address] [place] [address] Divina Salas Social History Tobacco Use Types Packs/Day Years Used Date Smoking Tobacco: Never Assessed Physical Activity Answer Date Recorded On average, [...] on file documented as of this encounter Plan of Treatment Not on file documented as of this encounter Visit Diagnoses Not on filedocumented in this encounter Additional Health Concerns Infection Onset Date Last Indicated Resolved Time COVID-19 06/03/2021 06/08/2021 03/07/2024 9:06 AM EDT documented as of this encounter Care Teams Sheet Metal Helper Relationship Specialty Start Date End Date Autumn De Luna MD PCP - General Internal Medicine 03/31/1808/25 Georgina Hoffman MD PCP - General Internal Medicine 08/26/19 09/29/21 Jayla Smith MD [address] [place] [address] PCP - General Internal Medicine 09/30/21 05/03/23 Harrison Cervantes MD [address] [place] [phone] PCP - General Internal Medicine 05/04/23 documented as of this encounter
--- OUTSIDE RECORDS SUMMARY | 2025-09-13 16:15 | XMS_ITS | Encounter Summary ---
Author Organization [facility] Address [address] [place] [address] Care Team Providers Care Parts Room Assistant Name Role Phone Jayla Smith MD Primary Care Provider [phone] Harrison Cervantes MD Primary Care Provider + Reason for Visit * Reason Onset Date Comments medication problems 12/05/2021 Encounter Details Date Type Department Care Team Description 12/05/2021 Telephone Adult Medicine [address] [id number] Jayla Smith MD [address] [place] [address] [phone] medication problems Social History Tobacco Use Types [...] encounter Miscellaneous Notes * Telephone Encounter - Tatyana Aggarwal PA-C - 12/06/2021 11:25 AM EST I sent Patanol 0.1% ophthalmic solution as an alternative to her pharmacy 4 days ago. * Telephone Encounter - Ira Brooks M.A. - 12/06/2021 11:21 AM EST This is not covered (cetirizine) I am not sure what an alternative would be, I can look up on formulary if you give me a few options Please reply back to p [phone] Prior [facility] [email or web address] trina Brooks M.A. Regional Prior Authorizations Ext [phone] Fax: [phone] reply back to p [phone] Prior Nyla mena * Telephone Encounter - Liang Woodward M.A. - 12/05/2021 9:37 AM EST Spoke w/pharmacist, they state no alt med listed per [employer]. Will route to JUAN mena for consideration. * Telephone Encounter - Joan Nicholas - 12/05/2021 7:24 AM EST Who is calling? A pharmacist: Pharmacy: [facility] Pharmacist Name: fax Pharmacy Phone # [phone] Name of the medication Cetirizine HCl 0.24 % Solution What is the specific problem or interaction? Not covered by patients insurance If the patient is having a problem [...] documented as of this encounter Care Teams Parts Room Assistant Relationship Specialty Start Date End Date Jayla Smith MD [address] [place] [address] PCP - General Internal Medicine 09/30/21 05/03/23 Harrison Cervantes MD [address] [place] [address] PCP - General Internal Medicine 05/04/23 documented as of this encounter
--- OUTSIDE RECORDS SUMMARY | 2025-09-13 16:15 | XMS_ITS | Encounter Summary ---
Author Organization [facility] Address [address] [place] [address] Care Team Providers Care Forge Tender Name Role Phone Harrison Cervantes MD Primary Care Provider + Encounter Details Date Type Department Care Team Description 12/31/2023 Release of Information Medical Records [address] [place] [id number] [place] [address] Social History Tobacco Use Types Packs/Day Years [...] documented as of this encounter Care Teams Forge Tender Relationship Specialty Start Date End Date Harrison Cervantes MD [address] [place] [phone] PCP - General Internal Medicine 05/04/23 documented as of this encounter
--- OUTSIDE RECORDS SUMMARY | 2025-09-13 16:15 | XMS_ITS | Encounter Summary ---
Author Organization [facility] Address [address] [place] [address] Care Team Providers Care Furnace Repairer Name Role Phone Georgina Hoffman MD Primary Care Provider Unavail able Jayla Smith MD Primary Care Provider [phone] Harrison Cervantes MD Primary Care Provider + Encounter Details Date Type Department Care Team Description 03/11/2021 Release of Information Medical Records [address] [place] [address] [facility] Social History Tobacco Use Types Packs/Day Years Used Date Smoking Tobacco: Former Cigarettes Smokeless Tobacco: Never Comments:just restarted in [...] have Coronavirus / COVID-19? No / Unsure 03/13/2021 2:44 PM EDT documented as of this encounter Plan of Treatment Not on file documented as of this encounter Visit Diagnoses Not on filedocumented in this encounter Additional Health Concerns Infection Onset Date Last Indicated Resolved Time COVID-19 06/03/2021 06/08/2021 03/07/2024 9:06 AM EDT documented as of this encounter Care Teams Furnace Repairer Relationship Specialty Start Date End Date Georgina Hoffman MD PCP - General Internal Medicine 08/26/19 09/29/21 Jayla Smith MD [address] [place] [address] PCP - General Internal Medicine 09/30/21 05/03/23 Harrison Cervantes MD [address] [place] [address] PCP - General Internal Medicine 05/04/23 documented as of this encounter
--- OUTSIDE RECORDS SUMMARY | 2025-09-13 16:15 | XMS_ITS | Encounter Summary ---
Author Organization [facility] Address [address] [place] [address] Care Team Providers Care Talent Management Manager Name Role Phone Brando Harris MD Primary Care Provider Brando Castorena MD Primary Care Provider Autumn Knowles MD Primary Care Provider Un available Georgina Hoffman MD Primary Care Provider Unavail able Jayla Smith MD Primary Care Provider [phone] Harrison Cervantes MD Primary Care Provider + Encounter Details Date Type Department Care Team Description 11/27/2017 Pt. Non Urgent Medical Question OBGYN - [place] [address] [place] [address] Litzy Oakley CNM Social History Tobacco Use [...] of this encounter Progress Notes * Taisha Levianey - 11/27/2017 12:43 PM ESTFrom: Lindsay Gomez To: Litzy Oakley CNM Sent: 11/27/2017 12:36 PM EST Subject: Recent test results Litzy, So sorry 5o bother you yet again. I have been really tryi g to understand these positive rests for the herpes antibodies and all I am understand is..I HAVE been infected, but my body just hasnt reacted with symptoms yet. Everything I read says I DO have the virus in me. Which means I DO have an STD. i know im going to be there in 6 weeks for more tests. I havent been able to eat im 2 days. Im a wr dalila. Can you please explain the results to me better. Do I have the herpes virus? Do I have and std? Thank you again! Lindsay documented in this encounter Plan of Treatment Not on file documented as of this encounter Visit Diagnoses Not on filedocumented in this encounter Additional Health Concerns Infection Onset Date Last Indicated Resolved Time COVID-19 06/03/2021 06/08/2021 03/07/2024 9:06 AM EDT documented as of this encounter Care Teams Talent Management Manager Relationship Specialty Start Date End Date Brando Harris MD PCP - General Internal Medicine 03/07/13 03/25/18 Brando Harris MD PCP - General Internal Medicine 03/26/18 03/30/18 Autumn De Luna MD PCP - General Internal Medicine 03/31/1808/25 Georgina Hoffman MD PCP - General Internal Medicine 08/26/19 09/29/21 Jayla Smith MD [address] [place] [address] PCP - General Internal Medicine 09/30/21 05/03/23 Harrison Cervantes MD [address] [place] [address] PCP - General Internal Medicine 05/04/23 documented as of this encounter
--- OUTSIDE RECORDS SUMMARY | 2025-09-13 16:15 | XMS_ITS | Encounter Summary ---
Author Organization [facility] Address [address] [place] [address] Care Team Providers Care Jewel Hole Driller Name Role Phone Brando Harris MD Primary Care Provider Brando Castorena MD Primary Care Provider Autumn Knowles MD Primary Care Provider Un available Georgina Hoffman MD Primary Care Provider Unavail able Jayla Smith MD Primary Care Provider [phone] Harrison Cervantes MD Primary Care Provider + Encounter Details Date Type Department Care Team Description 05/07/2015 Night Triage Doc Medical Records [address] [place] [id number] Abstract, Provider Social History Tobacco Use Types Packs/Day Years Used Date Smoking Tobacco: Former Cigarettes Smokeless Tobacco: Never Alcohol Use Standard Drinks/Week [...] documented as of this encounter Care Teams Jewel Hole Driller Relationship Specialty Start Date End Date Brando Harris MD PCP - General Internal Medicine 03/07/13 03/25/18 Brando Harris MD PCP - General Internal Medicine 03/26/18 03/30/18 Autumn De Luna MD PCP - General Internal Medicine 03/31/1808/25 Georgina Hoffman MD PCP - General Internal Medicine 08/26/19 09/29/21 Jayla Smith MD [address] [place] [address] PCP - General Internal Medicine 09/30/21 05/03/23 Harrison Cervantes MD [address] [place] [address] PCP - General Internal Medicine 05/04/23 documented as of this encounter
--- OUTSIDE RECORDS SUMMARY | 2025-09-13 16:16 | XMS_ITS | Encounter Summary ---
Author Organization [facility] Address [address] [place] [address] Care Team Providers Care Assistant Laboratory Director Name Role Phone Harrison Cervantes MD Primary Care Provider + Reason for Visit * Reason Onset Date Comments TEST RESULTS 03/16/2024 Encounter Details Date Type Department Care Team Description 03/16/2024 Telephone [facility] [employer] [address] [place] [address] Adeola Earl CNM [address] [place] [address] TEST RESULTS Social History Tobacco Use Types Packs/Day Years [...] encounter Miscellaneous Notes * Telephone Encounter - Adeola Earl CNM - 03/31/2024 8:51 AM EDT Since her pap was ascus, + low risk HPV, she may still be candidate for the HPV vaccine, The vaccine protects against the high risk. Not all insurance cover the vaccine and there may be an out of pocket expense. If she would like to receive it, I can place an order for her to be on the nurse schedule. Adeola Earl CNM * Telephone Encounter - Ivy Srinivasan - 03/16/2024 9:30 AM EDT Pts partner believes she cheated on him because of the HPV. She is also asking about ASCUS. She is wondering if she should get the gardasil series. * Telephone Encounter - Elisa Huff - 03/16/2024 8:53 AM EDT Inform patient: ANY URGENT OR ABNORMAL RESULTS WIILL RESULT IN A CALL BACK TO THE PATIENT ROSETTE. Type of test: :pap smear Date test was performed: 03/07/24 Where was the test performed: [facility] Who ordered this test?: Adeola Earl Is the doctor here today?: YES Can the message wait until the doctor returns?: NO IF PATIENT'S PCP IS NOT IN INSTRUCT PATIENT THAT THEY WILL RECEIVE A CALL BACK WHEN THE PCP IS IN THE OFFICE NEXT. documented in this encounter Plan of Treatment Not on file documented as of this encounter Visit Diagnoses Not on filedocumented in this encounter Care Teams Assistant Laboratory Director Relationship Specialty Start Date End Date Harrison Cervantes MD [address] [place] [address] PCP - General Internal Medicine 05/04/23 documented as of this encounter
--- OUTSIDE RECORDS SUMMARY | 2025-09-13 16:16 | XMS_ITS | Encounter Summary ---
Author Organization [facility] Address [address] [place] [address] Care Team Providers Care Kettle Girl Name Role Phone Harrison Cervantes MD Primary Care Provider + Encounter Details Date Type Department Care Team Description 05/09/2024 Orders Only Medical Records [address] [place] [address] Pritesh Arcos, DO [address] [facility] [address] [facility] [place] [address] Social History Tobacco Use Types Packs/Day Years [...] on file documented as of this encounter Procedures Procedure Name Priority Date/Time Associated Diagnosis Comments OUTSIDE COLONOSCOPY Routine 05/09/2024 documented in this encounter Results * OUTSIDE COLONOSCOPY (05/09/2024) Pritesh Arcos DO RADIOLOGY documented in this encounter Visit Diagnoses Not on filedocumented in this encounter Care Teams Kettle Girl Relationship Specialty Start Date End Date Harrison Cervantes MD [address] [place] [address] PCP - General Internal Medicine 05/04/23 documented as of this encounter
--- OUTSIDE RECORDS SUMMARY | 2025-09-13 16:16 | XMS_ITS | Encounter Summary ---
Author Organization [facility] Address [address] [place] [address] Care Team Providers Care Boot And Shoe Laborer Name Role Phone Autumn De Luna MD Primary Care Provider Un available Georgina Hoffman MD Primary Care Provider Unavail able Jayla Smith MD Primary Care Provider [phone] Harrison Cervantes MD Primary Care Provider + Encounter Details Date Type Department Care Team Description 10/13/2018 Rib Knitter Report Medical Records [address] [place] [address] Divina Salas Social History Tobacco Use Types [...] documented as of this encounter Care Teams Boot And Shoe Laborer Relationship Specialty Start Date End Date Autumn De Luna MD PCP - General Internal Medicine 03/31/1808/25 Georgina Hoffman MD PCP - General Internal Medicine 08/26/19 09/29/21 Jayla Smith MD [address] [place] [address] PCP - General Internal Medicine 09/30/21 05/03/23 Harrison Cervantes MD [address] [place] [address] PCP - General Internal Medicine 05/04/23 documented as of this encounter
--- OUTSIDE RECORDS SUMMARY | 2025-09-13 16:16 | XMS_ITS | Encounter Summary ---
Author Organization [facility] Address [address] [place] [address] Care Team Providers Care Brickmason Supervisor Name Role Phone Harrison Cervantes MD Primary Care Provider + Reason for Visit * Reason Onset Date Comments Medication 2024 Encounter Details Date Type Department Care Team Description 2024 Refill Gastroenterology - [place] [address] [facility] [address] [place] [address] Pritesh Arcos DO [address] [facility] [address] [facility] [place] [address] Medication Social History Tobacco Use Types Packs/Day Years [...] on filedocumented in this encounter Care Teams Brickmason Supervisor Relationship Specialty Start Date End Date Harrison Cervantes MD [address] [place] [address] PCP - General Internal Medicine 05/04/23 documented as of this encounter
[2025-09-18 09:59] VITALS: BMI 29.2
== END 2025-09-13 14:40 | disposition home or self-care (01) ==
LOC: HO.ENCR 08:30
PROVIDERS: PCP Family Medicine; Visit Provider Dietitian, Registered
DX: E66.3 Overweight (principal)

== ENCOUNTER → 2025-09-13 08:29 | Outpatient (BNVA) | payer OTHER, SELFPAY | PROVIDERS: PCP Family Medicine; Visit Provider Dietitian, Registered | DX: Z71.3 Dietary counseling and surveillance (principal); E66.3 Overweight | CPT/HCPCS: 97802 ==